=== PATIENT | male | born 1955 | race Caucasian/White ===

== ENCOUNTER 2017-08-13 07:10 | Day surgery (SDC) | payer BC ==
[~2017-08-13] VITALS: Ht 180.3 cm; Wt 80.0 kg
[2017-08-13 07:33] VITALS: BP 170/108; PULSE 103; RESP 20; TEMP 98.2; O2SAT 97
[2017-08-13] MEDS ORDERED: SODIUM CHLOR 0.9% 1000 ML INJ 1,000 ML IV SCH (07:45)
[2017-08-13 08:47] LABS: POTASSIUM 4.4 MEQ/L (3.5-5.1)
[2017-08-13 09:05] VITALS: BP 100/52; PULSE 82; RESP 20; TEMP 97.7; O2SAT 95
[2017-08-13 09:20] VITALS: BP 87/46; PULSE 82; RESP 20; O2SAT 94
--- NOTE | 2017-08-13 09:44 | PD.RAD ---
Post Procedure Progress Note Pre Procedure Diagnosis: (1) Spinal cord lesion Post Procedure Diagnosis: (1) Spinal cord lesion Procedure Date: Aug 13, 2017 Supervising Radiologist: Tc Miller Estimated blood loss: none Anesthesia: Local Plan of Activity Patient to Unit: [facility] Patient Condition: Good Additional Comments: LP completed without difficulty 20cc of clear csf removed. Full dictated report to follow See PACS Report for procedural detail/treatment Tc Miller MD Aug 13, 2017 09:44
[2017-08-13 09:45] VITALS: BP 171/109; PULSE 98; RESP 20; TEMP 98.3; O2SAT 99
[2017-08-13 10:58] LABS: GROSS BLOOD TUBE #1 0 (0); SUPERNATE COLOR TUBE #1 CLEAR (CLEAR); VOLUME TUBE # 1 5.1 ML
[2017-08-13 10:59] LABS: GROSS BLOOD TUBE #2 0 (0); GROSS BLOOD TUBE #3 0 (0); SUPERNATE COLOR TUBE #2 CLEAR (CLEAR); SUPERNATE COLOR TUBE #3 CLEAR (CLEAR); SUPERNATE COLOR TUBE #4 CLEAR (CLEAR); VOLUME TUBE # 3 4.5 ML; VOLUME TUBE # 4 5.7 ML
[2017-08-13 11:00] LABS: CSF LYMPHOCYTES 79 %; CSF MONOCYTES 21 %; CSF NEUTROPHILS 0 %; GROSS BLOOD TUBE #4 0 (0); WBC TUBE #4 2 /MM3 (0-10)
--- NOTE | 2017-08-13 15:49 | RADRPT ---
EXAM DATE/TIME: 08/13/2017 10:30 [place] COMPARISON: No previous studies available for comparison. INDICATIONS : Patient presents with multiple sclerosis in need of lumbar puncture due to extremity tingling and num bness. 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 PROCEDURE : 1. Fluoroscopic guided lumbar puncture. The risks, benefits and alternatives to the procedure were explained and verbal and written consent w as obtained. The site was prepped in sterile fashion. Full sterile technique was used, including ca p, mask, sterile gloves and gown and a large sterile sheet. Hand hygiene and 2% chlorhexidine and/or betadine/alcohol prep was utilized per protocol for cutaneous antisepsis. The skin and subcutaneous tissues were infiltrated with local anesthetic solution. With fluoroscopic guidance the lumbar thecal sac was punctured at the level above. The fluid describ ed above was removed without difficulty. The patient tolerated the procedure well and there were no complications. CONCLUSION: Uncomplicated fluoroscopically guided lumbar puncture. Tc Miller MD on August 13, 2017 at 15:47 Board Certified Radiologist. This report was verified electronically.
[2017-08-15 16:30] LABS: LYME IGG IMMUNOBLOT CSF None Detected bands (None Detected); LYME IGM IMMUNOBLOT CSF None Detected bands (None Detected)
[2017-08-15 19:52] LABS: VDRL CSF NON-REACTIVE (NON-REACTVE)
[2017-08-16 10:02] LABS: CSF CRYPTOCOCCUS AG CONF ND (NOT DETECTD)
[2017-08-16 19:54] LABS: OLIGOCLONAL BANDING CSF ONE BAND (NO BANDS)
== END 2017-08-13 11:45 | disposition home or self-care (01) ==
LOC: HROP 07:10 → HRIP 07:13 → HROP 11:45
PROVIDERS: ATTEND Psychiatry & Neurology Neurology
DX: G35 Multiple sclerosis (principal); I10 Essential (primary) hypertension
CPT/HCPCS: 62270; 77003; 80048; 82040; 82042; 82784; 82945; 83873; 83916; 84157; 86403; 86592; 86618; 87015; 87070; 87102; 87116; 87205; 87206; 88108; 89051; J7030